=== PATIENT | female | born 1945 | race Caucasian/White ===

== ENCOUNTER 2016-08-07 15:06 | Emergency (ER) | payer MEDICARE ==
[2016-08-07 15:54] VITALS: BP 155/84
--- NOTE | 2016-08-07 16:11 | UC ---
Complaint Female HPI - HPI Summary HPI Summary: dysuria for 2 days. no lower abdominal pain, no increase in frequency or urgency. no fever. - History Of Current Complaint Chief Complaint: UCGU Stated Complaint: URINARY Time Seen by Provider: 08/07/16 15:44 Hx Obtained From: Patient ?: No Onset/Duration: Sudden Onset, Lasting Days Timing: Constant Severity Initially: Mild Severity Currently: Mild Pain Intensity: 3 Pain Scale Used: 0-10 Numeric Character: Burning Aggravating Factor(s): Urination Associated Signs And Symptoms: Positive: Negative - Risk Factors Ectopic Risk Factor: Negative - Allergies/Home Medications Allergies/Adverse Reactions: Allergies Allergy/AdvReac Type Severity Reaction Status Date / Time Codeine Allergy Altered Verified 08/07/16 15:54 Mental Status Nitrofurantoin Allergy Palpitation Verified 08/07/16 15:54 s Sulfa Antibiotics Allergy Rash Verified 08/07/16 15:54 PMH/Surg Hx/FS Hx/Imm Hx Previously Healthy: Yes Endocrine History Of: Denies: Diabetes, Thyroid Disease Cardiovascular History Of: Reports: Cardiac Disorders - heart valve replacement , Hypertension Respiratory History Of: Denies: Asthma - Surgical History Surgical History: Yes Surgery Procedure, Year, and Place: aortic valve replacement, bovine - Family History Known Family History: Positive: Cardiac Disease Negative: Hypertension - Social History Alcohol Use: Occasionally Substance Use Type: None Smoking Status (MU): Never Smoked Tobacco Review of Systems Constitutional: Negative Skin: Negative Eyes: Negative ENT: Negative Respiratory: Negative Cardiovascular: Negative Gastrointestinal: Negative Genitourinary: Dysuria Motor: Negative Neurovascular: Negative Musculoskeletal: Negative Neurological: Negative Psychological: Negative All Other Systems Reviewed And Are Negative: Yes Physical Exam Triage Information Reviewed: Yes Appearance: Well-Appearing, Well-Nourished, Pain Distress Vital Signs: Initial Vital Signs Temp 98.4 F 08/07/16 15:51 Pulse 80 08/07/16 15:51 Resp 16 08/07/16 15:51 BP 155/84 08/07/16 15:51 Pulse Ox 100 08/07/16 15:51 Vital Signs Reviewed: Yes Eye Exam: Normal Eyes: Positive: Conjunctiva Clear ENT Exam: Normal ENT: Positive: Normal ENT inspection, Pharynx normal, TMs normal Dental Exam: Normal Neck exam: Normal Neck: Positive: Supple, Nontender, No Lymphadenopathy Respiratory Exam: Normal Respiratory: Positive: Chest non-tender, Lungs clear, Normal breath sounds Cardiovascular Exam: Normal Cardiovascular: Positive: RRR, No Murmur, Pulses Normal Abdominal Exam: Normal Abdomen Description: Positive: Nontender, No Organomegaly, Soft - no CVA tenderness Bowel Sounds: Positive: Present Musculoskeletal Exam: Normal Musculoskeletal: Positive: Strength Intact, ROM Intact, No Edema Neurological Exam: Normal Neurological: Positive: Alert, Muscle Tone Normal Psychological Exam: Normal Skin Exam: Normal Complaint Female Dx - Course Course Of Treatment: history obtained, exam performed, UA neg, cuture sent. pt deffered pelvic exam, Affirm swab obtained for yeast. no medications given. recommend over the counter vaginal cream to relieve irritation. - Differential Dx/Diagnosis Differential Diagnosis/HQI/PQRI: Sexually Transmitted Disease, Ureteral Stone, Urinary Tract Infection, Other - javon Provider Diagnoses: Dysuria. vaginal itching Discharge - Discharge Plan Condition: Stable Disposition: HOME Patient Education Materials: Dysuria (ED) Referrals: Raymond Shea DO [Primary Care Provider] - Additional Instructions: Your urinalysis today was negative for any bacteria or blood, We have sent it to be cultured, a swab to test for yeast was also sent. in the mean time take the one time diflucan and use the OTC cream for irritation such as monistat or vagisil. we will call you if you need to be treated for any infection. In the meantime increase your fluid intake.
== END 2016-08-07 16:19 | disposition home or self-care (01) ==
LOC: UCCORT 15:06
DX: R30.0 Dysuria (principal); L29.2 Pruritus vulvae; I10 Essential (primary) hypertension; Z95.2 Presence of prosthetic heart valve; Z88.5 Allergy status to narcotic agent; Z88.2 Allergy status to sulfonamides; Z88.8 Allergy status to other drugs, medicaments and biological substances
CPT/HCPCS: 87086; 87480; 87510; 99212; G0463

== ENCOUNTER 2017-08-29 14:19 | Emergency (ER) | payer MEDICARE ==
[2017-08-29 16:09] VITALS: BP 142/71
--- NOTE | 2017-08-29 16:45 | UC ---
Throat Pain/Nasal Ismael HPI - HPI Summary HPI Summary: PT IS C/O SINUS CONGESTION WITH SINUS PRESSURE AND DRAINAGE. THE PRESSURE IS WORSENING AND THE DRAINAGE HAS BECOME GREEN. SHE HAS A HX OF SINUSITIS AND THIS FEELS THE SAME. OTC ALKASELTZER TX IS NOT HELPING. - History of Current Complaint Chief Complaint: UCGeneralIllness Stated Complaint: SINUS COMPLAINT Time Seen by Provider: 08/29/17 16:15 Hx Obtained From: Patient ?: No Onset/Duration: Gradual Onset Pain Intensity: 8 Associated Signs & Symptoms: Positive: Sinus Discomfort, Nasal Discharge - Epiglottits Risk Factors Epiglottis Risk Factors: Negative - Allergies/Home Medications Allergies/Adverse Reactions: Allergies Allergy/AdvReac Type Severity Reaction Status Date / Time codeine Allergy Altered Verified 08/29/17 16:05 Mental Status nitrofurantoin Allergy Palpitation Verified 08/29/17 16:05 s procaine [From Novocain] Allergy Palpitation Verified 08/29/17 16:05 s Sulfa (Sulfonamide Allergy Rash Verified 08/29/17 16:05 Antibiotics) Home Medications: Home Medications Metoprolol Tartrate TAB* [Lopressor TAB*] 25 mg PO BID 08/29/17 [History Confirmed 08/29/17] PMH/Surg Hx/FS Hx/Imm Hx Cardiovascular History: Hypertension - Surgical History Surgical History: Yes Surgery Procedure, Year, and Place: aortic valve replacement, bovine - Family History Known Family History: Positive: Cardiac Disease Negative: Hypertension - Social History Occupation: Retired Lives: With Family Alcohol Use: Occasionally Substance Use Type: None Smoking Status (MU): Never Smoked Tobacco Review of Systems Constitutional: Negative Skin: Negative Eyes: Negative ENT: Nasal Discharge, Sinus Congestion, Sinus Pain/Tenderness Respiratory: Negative Cardiovascular: Negative Gastrointestinal: Negative Genitourinary: Negative Neurological: Negative Is Patient Immunocompromised?: No All Other Systems Reviewed And Are Negative: Yes Physical Exam Triage Information Reviewed: Yes Appearance: Well-Appearing Vital Signs: Initial Vital Signs Temp 98.4 F 08/29/17 16:03 Pulse 82 08/29/17 16:03 Resp 16 08/29/17 16:03 BP 142/71 08/29/17 16:03 Pulse Ox 100 08/29/17 16:03 Vital Signs Reviewed: Yes Eye Exam: Normal ENT: Positive: Pharynx normal, Nasal congestion, Nasal drainage, TMs normal, Sinus tenderness Neck: Positive: Supple, Nontender, No Lymphadenopathy Respiratory: Positive: Lungs clear, Normal breath sounds, No respiratory distress Cardiovascular: Positive: RRR, No Murmur Abdomen Description: Positive: Nontender, Soft Bowel Sounds: Positive: Present Neurological: Positive: Alert Psychological: Positive: Age Appropriate Behavior Skin Exam: Normal Throat Pain/Nasal Course/Dx - Course Course Of Treatment: HX WITH EXAM C/W SINUSITIS. WILL TX AUGMENTIN, OTC FLONASE AND NASAL SALINE FLUSH. PT HAS KNOWN HX HTN WHICH IS BEING TX. CURRENT VALUE BASELINE. - Differential Dx/Diagnosis Provider Diagnoses: SINUSITIS Discharge - Discharge Plan Condition: Stable Disposition: HOME Prescriptions: Amoxicillin/Clavulanate TAB* [Augmentin TAB 875*] 875 mg PO BID 10 Days #20 tab Patient Education Materials: Sinusitis (ED) Referrals: Cooper Luo MD [Medical Doctor] - 7 Days
== END 2017-08-29 16:53 | disposition home or self-care (01) ==
LOC: UCCORT 14:19
DX: J32.9 Chronic sinusitis, unspecified (principal); I10 Essential (primary) hypertension
CPT/HCPCS: 99212; G0463

== ENCOUNTER 2018-07-23 10:09 | Emergency (ER) | payer MEDICARE ==
[2018-07-23 10:40] VITALS: BP 146/73
--- NOTE | 2018-07-23 11:30 | UC ---
UC General HPI - HPI Summary HPI Summary: 5 day hx sinus congestion with post nasal drip. Sore throat for 3 days. Sore throat is now severe. no muffled voice. tx otc advil cold - History of Current Complaint Chief Complaint: UCRespiratory Stated Complaint: ST Time Seen by Provider: 07/23/18 11:27 Hx Obtained From: Patient Onset/Duration: Gradual Onset Timing: Constant Pain Intensity: 8 Aggravating: swallow Associated Signs & Symptoms: Negative: Fever, Headache - Allergy/Home Medications Allergies/Adverse Reactions: Allergies Allergy/AdvReac Type Severity Reaction Status Date / Time codeine Allergy Altered Verified 07/23/18 10:41 Mental Status nitrofurantoin Allergy Palpitation Verified 07/23/18 10:41 s procaine [From Novocain] Allergy Palpitation Verified 07/23/18 10:41 s Sulfa (Sulfonamide Allergy Rash Verified 07/23/18 10:41 Antibiotics) Home Medications: Home Medications Aspirin 325 mg PO DAILY 07/23/18 [History Confirmed 07/23/18] Atorvastatin* [Lipitor*] 20 mg PO QPM 07/23/18 [History Confirmed 07/23/18] Cholecalciferol TAB* [Vitamin D TAB*] 1,000 unit PO DAILY 07/23/18 [History Confirmed 07/23/18] Ibuprofen/Pseudoephedrine HCl [Advil Cold & Sinus] 1 tab PO Q5H PRN 07/23/18 [ History Confirmed 07/23/18] [place]-3 Fatty Acids/Fish Oil [[place] 3] 1 cap PO DAILY 07/23/18 [History Confirmed 07/23/18] Vit A/Vit C/Vit E/Zinc/Copper [Preservision Areds Softgel] 1 each PO BID [History Confirmed 07/23/18] PMH/Surg Hx/FS Hx/Imm Hx Endocrine History: Dyslipidemia Cardiovascular History: Hypertension - Surgical History Surgical History: Yes Surgery Procedure, Year, and Place: aortic valve replacement, bovine; 12/2017 cataracts, lenses - Family History Known Family History: Positive: Cardiac Disease Negative: Hypertension - Social History Alcohol Use: Occasionally Substance Use Type: None Smoking Status (MU): Never Smoked Tobacco - Immunization History Vaccination Up to Date: Yes Review of Systems All Other Systems Reviewed And Are Negative: Yes Constitutional: Positive: Negative Skin: Positive: Negative Eyes: Positive: Negative ENT: Positive: Sore Throat, Sinus Congestion, Sinus Pain/Tenderness Respiratory: Positive: Negative Cardiovascular: Positive: Negative Gastrointestinal: Positive: Negative Genitourinary: Positive: Negative Motor: Positive: Negative Neurovascular: Positive: Negative Musculoskeletal: Positive: Negative Neurological: Positive: Negative Psychological: Positive: Negative Is Patient Immunocompromised?: No Physical Exam Triage Information Reviewed: Yes Appearance: Well-Appearing Vital Signs: Initial Vital Signs Temp 97.9 F 07/23/18 10:32 Pulse 78 07/23/18 10:32 Resp 20 07/23/18 10:32 BP 146/73 07/23/18 10:32 Pulse Ox 100 07/23/18 10:32 Vital Signs Reviewed: Yes Eyes: Positive: Conjunctiva Clear ENT: Positive: Pharyngeal erythema - L>R, Nasal congestion, TMs normal, Uvula midline. Negative: Nasal drainage, Trismus, Muffled voice, Hoarse voice Neck: Positive: Supple, Tenderness @ - peritonsilar nodes with mild enlargement. Respiratory: Positive: Lungs clear, Normal breath sounds Cardiovascular: Positive: RRR, No Murmur Abdomen Description: Positive: Nontender, No Organomegaly, Soft Bowel Sounds: Positive: Present Musculoskeletal: Positive: ROM Intact Neurological: Positive: Alert Psychological: Positive: Age Appropriate Behavior Skin Exam: Normal Diagnostics - Laboratory Diagnostic Studies Completed/Ordered: rapid strep=negative Course/Dx - Course Course Of Treatment: rap strep is neg but pt's throat is much worse and thraot is c/w cellulitis thus will cover for bacterial infection. no concern for peritonsilar abscess. - Differential Dx - Multi-Symptom Differential Diagnoses: Other - uri, sinsuitis, viral pharyngitis, strep throat , pertonsilar abscess, pharyngeal cellulitis. - Diagnoses Provider Diagnosis: URI (upper respiratory infection), Cellulitis of pharynx Discharge - Sign-Out/Discharge Documenting (check all that apply): Patient Departure All imaging exams completed and their final reports reviewed: No Studies - Discharge Plan Condition: Stable Disposition: HOME Prescriptions: Amoxicillin/Clavulanate TAB* [Augmentin TAB 875*] 875 mg PO BID 10 Days #20 tab Patient Education Materials: Pharyngitis (ED), Upper Respiratory Infection (DC) Referrals: Shantelle Potter PA [Primary Care Provider] - 5 Days - Billing Disposition and Condition Condition: STABLE Disposition: Home - Attestation Statements Provider Attestation: I was available for consult. This patient was seen by the ANGELA. The patient was not presented to , seen by or examined by ar -Renetta Ruelas MD
== END 2018-07-23 11:43 | disposition home or self-care (01) ==
LOC: UCCORT 10:09
DX: J39.1 Other abscess of pharynx (principal); J06.9 Acute upper respiratory infection, unspecified; Z88.2 Allergy status to sulfonamides; Z88.1 Allergy status to other antibiotic agents; Z88.4 Allergy status to anesthetic agent; I10 Essential (primary) hypertension; E78.5 Hyperlipidemia, unspecified; Z88.5 Allergy status to narcotic agent
CPT/HCPCS: 87651; 99212; G0463